=== PATIENT | male | born 1950 | race Caucasian/White ===

== ENCOUNTER 2022-11-25 08:51 | Outpatient (CLI) | payer MEDICARE, SELFPAY | END 2022-11-25 08:52 | disposition home or self-care (01) | PROVIDERS: PCP Family Medicine; Visit Provider Family Medicine | DX: E11.9 Type 2 diabetes mellitus without complications (principal); E78.5 Hyperlipidemia, unspecified; I10 Essential (primary) hypertension; Z12.5 Encounter for screening for malignant neoplasm of prostate | CPT/HCPCS: 80048; 80061; 84153; 84460 ==

== ENCOUNTER 2023-06-01 10:36 | Outpatient (CLI) | payer OTHER, SELFPAY ==
[2023-06-01 14:03] LABS: Chloride* 103 mmol/L (96-114); Potassium* 4.8 mmol/L (3.6-5.1); Sodium* 138 mmol/L (135-149)
[2023-06-01 14:06] LABS: Blood Urea Nitrogen* 16 mg/dL (7-30); Calcium* 9.5 mg/dL (8.4-10.6); Carbon Dioxide* 28 mmol/L (20-32); Estimated Glomerular Filt Rate 80 ml/min; Glucose* 241 mg/dL (60-115)
== END 2023-06-01 10:37 | disposition home or self-care (01) ==
PROVIDERS: PCP Family Medicine; Visit Provider Family Medicine
DX: I10 Essential (primary) hypertension (principal)
CPT/HCPCS: 80048

== ENCOUNTER 2023-12-05 10:52 | Outpatient (CLI) | payer OTHER, SELFPAY | END 2023-12-05 10:53 | disposition home or self-care (01) | PROVIDERS: PCP Family Medicine; Visit Provider Family Medicine | DX: Z12.5 Encounter for screening for malignant neoplasm of prostate (principal); E78.2 Mixed hyperlipidemia; E11.9 Type 2 diabetes mellitus without complications; I10 Essential (primary) hypertension; Z79.899 Other long term (current) drug therapy; I25.10 Atherosclerotic heart disease of native coronary artery without angina pectoris | CPT/HCPCS: 80061; 84460; G0103 ==

== ENCOUNTER 2024-01-24 09:26 | Day surgery (SDC) | payer OTHER, SELFPAY ==
[2024-01-24] VITALS (12 sets, daily range): BP systolic 136–191; BP diastolic 72–96; PULSE 62–69; RESP 14–18; TEMP 36.9–37.1; O2SAT 94–100; BMI 25.7
[2024-01-24] MEDS: SODIUM CHLORIDE 0.9 % (FLUSH) 10 ML SYRINGE IVF (10:15)
[2024-01-24] MEDS: CEFAZOLIN 2 GM INJ IVP (10:15)
[2024-01-24] MEDS: lidocaine HCL 2 % MULTIDOSE 20 ML VIAL 5 ML INJECTION (11:40)
[2024-01-24] MEDS: BUPIVACAINE 0.5% 30 ML 5 ML INJECTION (11:40)
[2024-01-24] MEDS: BUPIVACAINE 0.5% 30 ML 14.5 ML INJECTION (12:10)
[2024-01-24] MEDS: lidocaine HCL 2 % MULTIDOSE 20 ML VIAL 14.5 ML INJECTION (12:10)
--- NOTE | 2024-01-24 12:16 | PM.ORPRC ---
Procedure Note Date of procedure: 01/24/24 Procedure: Preop diagnosis: Left hand middle finger mucous cyst Postop diagnosis: Left hand middle finger mucous cyst Procedure: DIP joint debridement Anesthesia: Local Surgeon: Donavon Moncada MD speech language pathology assistant: [email or web address] Sim EBL: 0 mL Complications: None Specimens: None Drains: None Preop antibiotics: Ancef 2 g Indications: The patient has a history of left hand middle finger mucous cyst. Despite appropriate nonoperative management they continue to have symptoms. Operative intervention was recommended. The risks, benefits alternatives and expected outcomes were discussed in detail. These included but were not limited to: Infection, bleeding, injury to blood vessel or nerve, venous thromboembolism. All questions were answered to their satisfaction. The patient was placed supine on the operating room table. Local anesthesia was established with a digital block using 0.5% Marcaine without epinephrine and 2% lidocaine without epinephrine. The hand was prepped and draped in usual sterile fashion. The finger was exsanguinated, a quarter-inch Kaila was used at the base of the finger as a tourniquet. A Scott incision was made over the dorsum of the DIP joint. Tenotomy scissors were used for deep dissection down to the extensor mechanism. A full-thickness skin flap was elevated. The radial and ulnar side of the joint was entered with the 15 blade. The Lempert rongeur was used to debride the corner of the middle phalanx and base of the distal phalanx to decompress the joint on both sides of the extensor mechanism. The wound was irrigated with normal saline. It was closed with a 3-0 nylon in an interrupted fashion. A soft dressing was applied. The Kaila was released. Sponge and needle counts were correct x 2. The patient tolerated the procedure well, there were no apparent complications. They were sent to same day surgery in satisfactory condition. Plan: Use of the hand as tolerates. Discontinue the intraoperative dressing on postoperative day 3 and may get the wound wet as tolerates. Follow up in the office in 2 weeks for a wound check and suture removal.
== END 2024-01-24 13:01 | disposition home or self-care (01) ==
PROVIDERS: PCP Family Medicine; Visit Provider Orthopaedic Surgery
PROC: (CPT 26055; principal; 2024-01-24 11:30)
DX: M67.442 Ganglion, left hand (principal)
CPT/HCPCS: 26160; J0665; J0690

== ENCOUNTER 2024-12-14 10:25 | Outpatient (CLI) | payer OTHER, SELFPAY | END 2024-12-14 10:26 | disposition home or self-care (01) | PROVIDERS: PCP Family Medicine; Visit Provider Family Medicine | DX: I10 Essential (primary) hypertension (principal); E78.2 Mixed hyperlipidemia; E11.9 Type 2 diabetes mellitus without complications; Z12.5 Encounter for screening for malignant neoplasm of prostate | CPT/HCPCS: 80048; 80061; G0103 ==